=== PATIENT | male | born 1960 | race African-American/Black ===

== ENCOUNTER 2021-01-09 15:42 | Observation (INO) | payer MEDICARE, BC, SELFPAY ==
[2021-01-09] VITALS (29 sets, daily range): BP systolic 96–134; BP diastolic 68–91; PULSE 72–83; RESP 14–30; TEMP 36.6–37.4; O2SAT 94–100; BMI 19.8
--- NOTE | ~2021-01-09 | XR_ITS ---
XR chest 1V portable DATE: 01/09/2021 16:29 INDICATION: Cough. Lethargy, confusion, hypotension, bradycardia. TECHNIQUE: Portable upright AP chest on 03/09/2021 at 1631 hours COMPARISON: 05/02/2016 2 view chest FINDINGS: Normal heart size. No hilar or mediastinal enlargement. No pulmonary infiltrate or consolid ation, pleural effusion or pulmonary vascular congestion or pneumothorax. IMPRESSION: No active cardiopulmonary disease Reviewed, dictated and finalized at location B. TYPE FINISHER
--- NOTE | ~2021-01-09 | CT_ITS ---
EXAMINATION: CT brain wo con EXAM DATE: 01/09/2021 17:03 INDICATION: Altered level of consciousness, confusion and lethargy. Low blood pressure. Sinus issues. TECHNIQUE: Spiral CT of the head was performed without contrast. Axial, coronal and sagittal images were reviewed. The dose-length product (DLP) for this examination was 605.33 mGy-cm. The exposure w as tailored according to patient size, and iterative reconstruction (ASIR) was used as additional dos e reduction technique. Comparison is made to prior examination from 09/07/2018. FINDINGS: There is no acute intraparenchymal hemorrhage. No evidence of intraparenchymal brain mass lesion. No evidence of acute infarction. There is mild microangiopathy and atrophy. There is no mass effect or midline shift. The ventricles are normal in size. There are no extra-axial collections. There are no acute calvarial fractures. The orbits are unremarkable. Soft tissue is unremarkable. Mild right ethmoid mucoperiosteal thickening. No sinus air-fluid levels. Mastoid air cells are well a erated. IMPRESSION: 1. No acute intracranial findings. Reviewed, dictated and finalized at location A. ENTIALS SPECIALIST
--- NOTE | 2021-01-09 16:12 | ECG_ITS ---
Measurements Intervals [place] Rate: 71 P: 80 MD: 171 QRS: 65 QRSD: 69 T: 68 QT: 370 QTc: 403 Interpretive Statements SINUS RHYTHM BASELINE ARTIFACT- I, II, AVR, AVL, AVF NORMAL ECG Electronically Signed On 01-09-2021 19:48:06 [employer] by José Manuel Green D.O.
[2021-01-09 16:40] LABS: Basophils Percent Auto 0.2 % (0.2-1.2); Hematocrit 42.1 % (42.0-52.0); Hemoglobin 13.4 g/dL (14.0-18.0); Immature Granulocyte Absolute 0.02 K/mm3 (0.00-0.031); Immature Granulocyte Percent A 0.2 % (0-0.5); Lymphocytes Absolute Auto 0.52 K/mm3 (0.9-3.2); Lymphocytes Percent Auto 5.3 % (18.3-44.2); Mean Corpuscular HGB Conc 31.8 g/dl (32-36); Mean Corpuscular Hemoglobin 28.5 pg (26-34); Mean Corpuscular Volume 89.6 fl (80-100); Mean Platelet Volume 11.1 fl (7.4-10.4); Monocytes Absolute Auto 0.5 K/mm3 (0.1-0.6); Monocytes Percent Auto 5.5 % (2.6-8.5); Neutrophils Absolute Auto 8.8 K/mm3 (1.3-6.7); Neutrophils Percent Auto 88.8 % (45.5-73.1); Platelet Count Result 171 k/mm3 (150-375); White Blood Count 9.9 K/mm3 (4.5-10.0)
[2021-01-09 16:50] LABS: INR 0.9; Prothrombin Time 13.2 Seconds (11.1-14.7)
[2021-01-09 16:56] LABS: Alanine Aminotransferase 18 U/L (4-50); Albumin Level 4.1 g/dL (3.5-5.1); Alkaline Phosphatase 62 U/L (38-126); Anion Gap 6 mmol/L (8-16); Aspartate Amino Transferase 21 U/L (17-59); Bilirubin,Total 0.3 mg/dL (0.2-1.3); Blood Urea Nitrogen 20 mg/dL (9-20); Calcium 8.9 mg/dL (8.4-10.2); Carbon Dioxide 31 mmol/L (22-30); Chloride 107 mmol/L (98-107); Estimated CRCL calculation 43 ml/min; Estimated Glomerular Filt Rate > 60; Glucose 123 mg/dL (75-110); Potassium 4.4 mmol/L (3.4-5.0); Sodium 144 mmol/L (137-145)
[2021-01-09 17:08] LABS: NT Pro B Type Natriuretic Pept 89 PG/ML (5-100); Troponin I < 0.012 ng/mL (0.000-0.034)
[2021-01-09 17:58] LABS: Add Urine Microscopic? YES; Appearance Urine Clear (Clear); Bilirubin Urine Negative (Negative); Blood Urine Negative (Negative); Color Urine Yellow (Yellow); Glucose Urine UA Negative (Negative); Ketones Urine Trace mg/dL (Negative); Leukocyte Esterase Ur Negative LEU/UL (Negative); Mucus Urine Few /lpf; Nitrate Urine Negative (Negative); Protein Urine 2+ mg/dL (Negative); RBC Urine 0-2 /hpf (0-2); Urobilinogen Urine Negative mg/dL (<2.0); WBC Urine 0-3 /hpf
[2021-01-09 18:08] LABS: Specific Grav Ur 1.031 (1.001-1.035)
--- NOTE | 2021-01-09 19:03 | ED.AMS ---
HPI - Altered Mental Status General Chief Complaint: Altered Mental Status Stated Complaint: Vomiting, weakness Time Seen by Provider: 01/09/21 16:10 Source: family Mode of arrival: EMS Limitations: altered mental status History of Present Illness HPI narrative: 60-year-old with a history of dementia, hyperlipidemia, CAD s/p stents, hypertension was brought in from home with complaints of decreased alertness for last few days. Patient's reports that he is unable to ambulate , eat and defecating on himself for past 2 days. She states that she is a primary caregiver for her she is unable to manage return of symptoms. She also mentions that his blood pressure and heart rate have been dropping earlier this afternoon his heart rate was 40. She stated to call Dr. Batres who recommended to come to the ER. She also reports that he had 1 episode of emesis which was clear MD complaint: altered mental status Onset (ago): day(s) (2) Timing confirmed by: spouse Severity: severe Consistency of symptoms: getting Worse Related Data Home Medications Medication Instructions Recorded Confirmed aspirin 325 mg tablet 325 mg PO DAILY 10/30/20 10/30/20 Allergies Allergy/AdvReac Type Severity Reaction Status Date / Time No Known Allergies Allergy Verified 08/02/20 15:26 Review of Systems Review of Systems: ROS unobtainable: Yes unobtainable due to mental status PMFSH Past Medical History Medical History Altered consciousness Hypertensive crisis Incontinent of feces Recurrent episodes of unresponsiveness Screening for colon cancer Screening for prostate cancer Family History Family History Father Family history of diabetes mellitus in first degree relative Hypertension Mother Hypertension Social History Social History Smoking status: Never smoker Second hand tobacco smoke exposure: No Alcohol intake: current Exam Narrative: Exam Narrative: GENERAL: Well-appearing, well-nourished, and in no acute distress.non verbal HEAD: Normocephalic, atraumatic. EYES: PERRLA and EOMI. NECK: Supple. CHEST: Clear to auscultation. No respiratory distress. HEART: Regular rate and rhythm. No murmur heard. Normal peripheral pulses. ABDOMEN: Soft, nontender, nondistended, normal active bowel sounds. EXTREMITIES: Normal range of motion. No edema. SKIN: Warm, dry, no rash. NEURO: No focal deficits. Alert . Course Course Emergency Course: I had a lengthy discussion with his about his lab work, CT scan EKG findings at this time there is no obvious acute stroke or any electrolyte imbalance or sign of infection. Patient reports that she is getting exhausted taking care of him at home as his mental function has been slowly declining. She states that she has no help and for the past few days she is unable to sleep. She does not want him to be placed in a half-way because of the Covid as she cannot visit him. i did discuss with Dr. Batres informed him about his work up. Vital Signs Vital signs: Vital Signs Temperature 37.4 C 01/09/21 15:51 Pulse Rate 74 01/09/21 15:51 Respiratory Rate 20 01/09/21 15:51 Blood Pressure 96/77 L 01/09/21 15:51 Pulse Oximetry 98 01/09/21 15:51 Temperature 37.4 C 01/09/21 15:51 Pulse Rate 81 01/09/21 18:32 Respiratory Rate 20 01/09/21 18:32 Blood Pressure 127/81 01/09/21 18:32 Pulse Oximetry 100 01/09/21 18:00 MDM - Altered Mental Status Differential Diagnosis Differential diagnosis: Likely altered mental status, dementia and hyponatremia Lab Data Result diagrams: 01/09/21 16:35 01/09/21 16:35 Labs: Lab Results 01/09/21 01/09/21 01/09/21 Range/Units 16:35 16:35 16:35 WBC 9.9 (4.5-10.0) K/mm3 RBC 4.70 (4.6-6.20) M/mm3 Hgb 13.4 L (14.0-18.0) g/dL
[2021-01-10] VITALS (7 sets, daily range): BP systolic 118–136; BP diastolic 77–81; PULSE 65–83; RESP 18–20; TEMP 36.8–36.9; O2SAT 94–100
--- NOTE | 2021-01-10 01:25 | PM.IMHP ---
H&P: HPI History of Present Illness Date/Time: 01/10/21 01:25 Chief Complaint: Confusion Narrative: Christian Michaud is a 60 year old male who has a history of dementia and lives with his at home. The patient was brought in from home with complaints of decreased alertness for the last few days. According to his patient was not able to ambulate or eat. He was defecating on himself for the past 2 days. His is his primary caregiver and was able to manage the patient at this point. Was also mention at the patient's heart rate blood pressure been dropping this afternoon is heart rate was in the 40s. They called the primary care doctor who recommended that the patient be taken to the emergency room. The patient did have 1 episode of emesis and no blood was noted at that time. Blood pressure was 96/77 pulse ox was 90% pulse rate was 74 when he came in he was afebrile. Also the patient's stated she has not been getting any help and she has not been able to sleep for the past few nights. She does not want him in a fpc because of COVID she will be able to visit him. Dr. Batres was informed about the workup per the ED physician. No signs and symptoms Of any infection. Head CT was read as nothing acute. Chest x-ray showed nothing acute. When I went to assess the patient he was sitting on the side of bed trying to pick get out of bed. The patient ate all of his chips and is sandwich and drink all of his water. He had no difficulty swallowing and was answering yes and no to some of my questions. Patient is being admitted to observation on 01/10/2021 Review of Systems Review of Systems: All systems reviewed & are unremarkable except as noted in HPI and below Constitutional: Constitutional: Reports as per HPI and Reports no additional constitutional complaints Eyes: Eyes: Reports as per HPI and Reports no additional eye complaints ENT: Reports system reviewed and no additional complaints, except as documented and Reports Normal hearing present Cardiovascular: Cardiovascular: Reports no additional cardiovascular complaints Respiratory: Respiratory: Reports no additional respiratory complaints and Reports no additional respiratory complaints Gastrointestinal: Gastrointestinal: Reports as per HPI and Reports no additional gastrointestinal complaints Musculoskeletal: Musculoskeletal: Reports no additional musculoskeletal complaints Integumentary/Breasts: Skin/Breast: Reports system reviewed and no additional complaints, except as docu and Reports as per HPI Neurologic: Reports system reviewed and no additional complaints, except as documented, Reports as per HPI and Reports Normal hearing present Psychiatric: Psychiatric: Reports no additional psychiatric complaints and Reports as per HPI Endocrine: Endocrine: Reports no additional endocrine complaints Hematologic/Lymphatic: Hematologic/Lymphatic: Reports no additional hematologic/lymphatic complaints Allergic/Immunologic: Allergic/Immunologic: Reports no additional allergic/immunologic complaints [facility] Past Medical History Medical History (Updated 01/10/21 @ 01:41 by Sara Sung NP) Altered consciousness Dementia Hyperlipidemia Hypertension Hypertensive crisis Incontinent of feces Mixed hyperlipidemia Recurrent episodes of unresponsiveness Screening for colon cancer Screening for prostate cancer Surgical History Surgical History (Updated 01/10/21 @ 01:41 by Sara Sung NP) Surgical history unknown Family History Family History Father Family history of diabetes mellitus in first degree relative Hypertension Mother Hypertension Social History Social History (Updated 01/10/21 @ 01:43 by Sara Sung NP) Social History: Patient lives at home with his . The patient is disabled. The patient is listed as a full code. Smoking status: Never smoker Second hand tobacco
--- NOTE | 2021-01-10 05:32 | ADMGEN ---
This patient, Christian Michaud, was admitted to 3 Med Surg Room 324-01. Patient/family oriented to hospital policies and general routines including ID bracelet, bed and alarms, visiting hours, pain management, procedures, bathroom and other care routines, personal items, smoking policy, room service/diet, and visiting hours. Information on how to activate the Rapid Response Team has been discussed. Patient/Family are encouraged to report perceived risks to care and to ask questions if they do not understand what they are told or what they should do. Patient was admitted at 2030 from the ER showing signs of severe dementia. He answers yes and no questions and doesn't answer specific medical questions. His and ROGERS Gonzales was called at 2100 to discuss medications and history. She states that she is his only caregiver at home and that he has been challenging, occasionally having altercations with her, dislocating her shoulder on one occasion. He has attempted getting up w/o assistance and didn't accept redirection at that time though he has been redirectable most of the time, often pulling off telemetry leads. Janet said she had his medications at home and med rec was performed over the phone. 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 She said his dementia was caused by Alzheimer's though it has been rapidly progressing over 4 years. There are a few closed scratch foreman on his skin, though no observed open areas. His said he is incontinent of urine and stool and has been wearing disposable briefs. He has had two occasions of urinary incontinence here.
--- NOTE | 2021-01-10 14:27 | PM.IMPN ---
Progress Note: A&P Assessment and Plan (1) Dementia: Code(s): F03.90 - Unspecified dementia without behavioral disturbance Status: Chronic Assessment and Plan: Continue with aspirin, Aricept, Namenda, Seroquel, and aspirin. Will do PT and OT evaluation career guidance technician consultation. May also consider neurology consult. It sounds like the does not want the patient into a correction and just needs some help at home perhaps home health. 01/10/21 14:27 patient is a 60-year-old male with history of dementia who is unable to take care of himself and his is taking care of him who is his caregiver apparently patient symptoms were getting progressively worse he lost control of his bowel function needed more help than his can provide patient was brought to the emergency department for further evaluation unfortunately patient is not able to provide any detail review of symptoms or history he answered simply yes and no with few words, to further evaluate CT of the head did not show any acute injury, chest x-ray is essentially normal, currently patient is sitting in the chair states he ate his breakfast and has no complaint we have asked PT OT to evaluate the patient and further recommendation to follow. (2) Hypertension: Code(s): I10 - Essential (primary) hypertension Status: Chronic Assessment and Plan: Continue with metoprolol (3) Hyperlipidemia: Code(s): E78.5 - Hyperlipidemia, unspecified Status: Chronic Assessment and Plan: Continue with simvastatin Subjective Date/time seen: 01/10/21 14:27 patient is a 60-year-old male with history of dementia who is unable to take care of himself and his is taking care of him who is his caregiver apparently patient symptoms were getting progressively worse he lost control of his bowel function needed more help than his can provide patient was brought to the emergency department for further evaluation unfortunately patient is not able to provide any detail review of symptoms or history he answered simply yes and no with few words, to further evaluate CT of the head did not show any acute injury, chest x-ray is essentially normal, currently patient is sitting in the chair states he ate his breakfast and has no complaint we have asked PT OT to evaluate the patient and further recommendation to follow. Review of Systems Review of Systems: ROS unobtainable: Yes unobtainable due to medical condition Exam Narrative: Exam Narrative: Patient is comfortable, NAD HEENT: eyes are clear and none icteric LUNGS:CTA HEART: RR S1S2 ABD: BS+, Soft and nontender Lower extremities: no edema MS: Patient's right arm appears deformed SKIN: nonjaundiced Neuro: grossly intact. Objective Data Vital Signs Vital Signs: Vital Signs - 24 hr 01/09/21 15:51 01/09/21 16:05 01/09/21 16:06 Temperature 99.4 F Pulse Rate 74 80 77 Respiratory Rate 20 14 21 H Blood Pressure 96/77 L 110/77 Pulse Oximetry 98 98 01/09/21 16:15 01/09/21 16:17 01/09/21 16:30 Temperature Pulse Rate 78 76 75 Respiratory Rate 15 22 H 30 H Blood Pressure 113/73 Pulse Oximetry 100 100 01/09/21 16:45 01/09/21 17:01 01/09/21 17:02 Temperature Pulse Rate 76 Respiratory Rate 19 23 H 18 Blood Pressure 120/79 Pulse Oximetry 01/09/21 17:15 01/09/21 17:16 01/09/21 17:30 Temperature Pulse Rate 74 76 Respiratory Rate 21 H 20 14 Blood Pressure 128/78 Pulse Oximetry 01/09/21 17:45 01/09/21 17:47 01/09/21 18:00 Temperature Pulse Rate 76 74 77 Respiratory Rate 21 H 21 H 20 Blood Pressure 121/68 Pulse Oximetry 100 01/09/21 18:01 01/09/21 18:15 01/09/21 18:16 Temperature Pulse Rate 76 76 75 Respiratory Rate 23 H 19 22 H Blood Pressure 127/79 116/81 Pulse Oximetry 01/09/21 18:30 01/09/21 18:32 01/09/21 18:47 Temperature Pulse Rate 72 81 75 Respiratory Rat
--- NOTE | 2021-01-10 17:00 | PM.DS ---
DS: Admitting Diagnosis Admitting Diagnosis Admitting Diagnosis: Chief Complaint: Confusion DS: Discharge Diagnosis Discharge Diagnosis (1) Dementia: Code(s): F03.90 - Unspecified dementia without behavioral disturbance Status: Chronic Assessment and Plan: Continue with aspirin, Aricept, Namenda, Seroquel, and aspirin. Will do PT and OT evaluation ocular care technician consultation. May also consider neurology consult. It sounds like the does not want the patient into a longterm and just needs some help at home perhaps home health. 01/10/21 14:27 patient is a 60-year-old male with history of dementia who is unable to take care of himself and his is taking care of him who is his caregiver apparently patient symptoms were getting progressively worse he lost control of his bowel function needed more help than his can provide patient was brought to the emergency department for further evaluation unfortunately patient is not able to provide any detail review of symptoms or history he answered simply yes and no with few words, to further evaluate CT of the head did not show any acute injury, chest x-ray is essentially normal, currently patient is sitting in the chair states he ate his breakfast and has no complaint we have asked PT OT to evaluate the patient and further recommendation to follow. (2) Hypertension: Code(s): I10 - Essential (primary) hypertension Status: Chronic Assessment and Plan: Continue with metoprolol (3) Hyperlipidemia: Code(s): E78.5 - Hyperlipidemia, unspecified Status: Chronic Assessment and Plan: Continue with simvastatin DS: Summary Hospital Course Reason for hospitalization: Chief Complaint: Confusion Narrative: Christian Michaud is a 60 year old male who has a history of dementia and lives with his at home. The patient was brought in from home with complaints of decreased alertness for the last few days. According to his patient was not able to ambulate or eat. He was defecating on himself for the past 2 days. His is his primary caregiver and was able to manage the patient at this point. Was also mention at the patient's heart rate blood pressure been dropping this afternoon is heart rate was in the 40s. They called the primary care doctor who recommended that the patient be taken to the emergency room. The patient did have 1 episode of emesis and no blood was noted at that time. Blood pressure was 96/77 pulse ox was 90% pulse rate was 74 when he came in he was afebrile. Also the patient's stated she has not been getting any help and she has not been able to sleep for the past few nights. She does not want him in a longterm because of COVID she will be able to visit him. Dr. Batres was informed about the workup per the ED physician. No signs and symptoms Of any infection. Head CT was read as nothing acute. Chest x-ray showed nothing acute. When I went to assess the patient he was sitting on the side of bed trying to pick get out of bed. The patient ate all of his chips and is sandwich and drink all of his water. He had no difficulty swallowing and was answering yes and no to some of my questions. Patient is being admitted to observation on 01/10/2021 Hospital Course: 01/10/21 14:27 patient is a 60-year-old male with history of dementia who is unable to take care of himself and his is taking care of him who is his caregiver apparently patient symptoms were getting progressively worse he lost control of his bowel function needed more help than his can provide patient was brought to the emergency department for further evaluation unfortunately patient is not able to provide any detail review of symptoms or history he answered simply yes and no with few words, to further evaluate CT of the head did not show any acute injury, chest x-ray is essentially normal, currently patient is sitting i
== END 2021-01-10 18:40 | disposition home or self-care (01) ==
LOC: ANHED 19:10 → ANH3MEDSUR 01-10 17:00
PROVIDERS: Admitting Provider Internal Medicine; Emergency Provider Family Medicine; PCP Internal Medicine; Visit Provider Family Medicine
DX: F03.90 Unspecified dementia, unspecified severity, without behavioral disturbance, psychotic disturbance, mood disturbance, and anxiety (principal); R11.2 Nausea with vomiting, unspecified; R53.1 Weakness; R15.9 Full incontinence of feces; E78.5 Hyperlipidemia, unspecified; I25.10 Atherosclerotic heart disease of native coronary artery without angina pectoris; I10 Essential (primary) hypertension; Z95.5 Presence of coronary angioplasty implant and graft; Z79.82 Long term (current) use of aspirin
CPT/HCPCS: 36415; 51701; 70450; 71045; 80053; 81001; 83880; 84484; 85025; 85610; 93005; 97161; 97165; 99285; G0378

== ENCOUNTER 2021-01-31 16:30 | Outpatient (CLI) | payer MEDICARE, BC, SELFPAY | END 2021-01-31 16:31 | disposition home or self-care (01) | LOC: ANHCOVIDVC 16:30 | PROVIDERS: PCP Internal Medicine | DX: Z23 Encounter for immunization (principal) | CPT/HCPCS: 0001A; 91300 ==

== ENCOUNTER 2021-02-21 16:34 | Outpatient (CLI) | payer MEDICARE, BC, SELFPAY | END 2021-02-21 16:35 | disposition home or self-care (01) | LOC: ANHCOVIDVC 16:34 | PROVIDERS: PCP Internal Medicine | DX: Z23 Encounter for immunization (principal) | CPT/HCPCS: 0002A; 91300 ==

== ENCOUNTER 2021-07-30 17:04 | Emergency (ER) | payer MEDICARE, BC, SELFPAY ==
--- NOTE | ~2021-07-30 | CT_ITS ---
EXAMINATION: CT brain w con DATE: 07/30/2021 23:22 INDICATION: Abnormality seen on recent CT examination. TECHNIQUE: Computed tomography (CT) of the head was performed with 100 cc Omnipaque 350 intravenous c ontrast. The dose-length product was 605.33 mGy-cm. Automated exposure control and iterative reconstr uction technique were employed. COMPARISON: CT dated 07/30/2021 FINDINGS: The area of hyperdensity seen in the interhemispheric fissure conforms to a vascular struct ure. No extra-axial hemorrhage is identified. No ventriculomegaly or midline shift. No acute intracra nial infarction, mass or mass effect.mild mucosal thickening of the ethmoid air cells on the right. M astoids are pneumatized. No depressed skull fractures. There are scattered mild periventricular and s ubcortical white matter changes, most likely related to small vessel ischemic disease (microangiopath y). IMPRESSION: 1. No acute intracranial abnormality. Focal hyperdensity seen on prior noncontrast CT examination con forms to an intracranial vessel in the interhemispheric fissure. 2: Chronic age-related findings. 3: Mild sinus disease. Reviewed, dictated and finalized at location A. IMPRESSION: 1. No acute intracranial abnormality. Focal hyperdensity seen on prior noncontr ast CT examination conforms to an intracranial vessel in the interhemispheric f issure. 2: Chronic age-related findings. 3: Mild sinus disease.
--- NOTE | ~2021-07-30 | CT_ITS ---
EXAMINATION: CT cervical spine wo con DATE: 07/30/2021 18:49 INDICATION: Status post fall. Neck pain. TECHNIQUE: Computed tomography (CT) of the cervical spine was performed without intravenous contrast. The dose-length product was 189 mGy-cm. Automated exposure control and iterative reconstruction tech nique were employed. COMPARISON: None FINDINGS: There is degenerative disc disease at C2-3 through C5-6. There is multilevel uncinate hyper trophy. There is mild dextrocurvature of the cervical spine. Odontoid process within normal limits. T here is carotid atherosclerosis. Lung apices are unremarkable. No acute fracture or traumatic malalig nment. No evidence for perched facet. IMPRESSION: 1. No acute fracture. Reviewed, dictated and finalized at location A. IMPRESSION: 1. No acute fracture.
--- NOTE | ~2021-07-30 | XR_ITS ---
XR hip RT 2V w AP pelvis 07/30/2021 18:41 Indication: Right hip pain after fall Procedure: AP pelvis and 2 views right hip Comparison: No prior studies for comparison. Findings: Osteopenia. There is mild symmetric osteoarthritis of the hips. There is an osteochondroma originating from the right ilium laterally. No acute fracture or traumatic malalignment. Pelvic rings are intact. Impression: 1: No acute fracture. Reviewed, dictated and finalized at location A. Impression: 1: No acute fracture.
--- NOTE | ~2021-07-30 | XR_ITS ---
EXAMINATION: XR knee RT 2V DATE: 07/31/2021 00:19 INDICATION: Right knee pain. Fall. TECHNIQUE: 2 views of right knee were obtained. COMPARISON: Right knee radiographs 07/30/2021 FINDINGS: There is varus angulation at the knee. No fracture. There is severe osteoarthritis of media l compartment and mild osteoarthritis of lateral and patellofemoral compartments. There is a large kn ee joint effusion. IMPRESSION: 1. Severe right knee osteoarthritis. 2. Large right knee joint effusion. Reviewed, dictated and finalized at location A.
--- NOTE | ~2021-07-30 | CT_ITS ---
EXAMINATION: CT brain wo con DATE: 07/30/2021 18:49 INDICATION: Status post fall. TECHNIQUE: Computed tomography (CT) of the head was performed without intravenous contrast. The dose- length product was 605.33 mGy-cm. Automated exposure control and iterative reconstruction technique w ere employed. COMPARISON: CT dated 01/09/2021 FINDINGS: There is a focal hyperdensity along the interhemispheric fissure anteriorly, suspicious for small extra-axial hemorrhage. Generalized atrophy. No ventriculomegaly or midline shift. There are s cattered mild periventricular and subcortical white matter changes, most likely related to small vess el ischemic disease (microangiopathy). Mild mucosal thickening of the right ethmoid sinuses. Mastoids are pneumatized. No depressed skull fractures. IMPRESSION: 1. Focal hyperdensity anterior aspect of the interhemispheric fissure, suspicious for extra-axial hem orrhage, axial image 38 and sagittal image 36. No significant mass effect. Reviewed, dictated and finalized at location A. IMPRESSION: 1. Focal hyperdensity anterior aspect of the interhemispheric fissure, suspicio us for extra-axial hemorrhage, axial image 38 and sagittal image 36. No signifi cant mass effect.
--- NOTE | ~2021-07-30 | XR_ITS ---
XR knee RT 3V 07/30/2021 18:41 Indication: Right knee pain after fall Procedure: 3 views right knee Comparison: No prior studies for comparison. Findings: Moderate joint effusion. There is moderate polyarticular osteoarthritis of the right knee. No fracture or traumatic malalignment. No foreign bodies. Impression: 1: No acute fracture. 2: Moderate joint effusion. 3: Moderate polyarticular osteoarthritis. Reviewed, dictated and finalized at location A. Impression: 1: No acute fracture. 2: Moderate joint effusion. 3: Moderate polyarticular osteoarthritis.
[2021-07-30 17:09] VITALS: BP 140/90; PULSE 72; RESP 16; TEMP 37.3; O2SAT 100
--- NOTE | 2021-07-30 19:00 | PC.NURSE ---
assumed care of pt at this time. Report from Cat RN
--- NOTE | 2021-07-30 19:01 | ED.GENADULT ---
HPI - General Adult General Chief complaint: Fall Stated complaint: R HIP PAIN/AMS Time Seen by Provider: 07/30/21 17:11 Source: family History of Present Illness HPI narrative: Patient is a 60 y/o male brought in for possible right hip injury. states that patient has dementia and he is unable to provide history. Patient was staying with his parents over the weekend and brought back by yesterday. He reportedly had an unwitnessed fall 2 days ago while he was with his parents. He was found the on the ground with leg stuck between foot board and mattress. He is currently not able to stand or walk. suspects patient may have hip pain and injury. Related Data Home Medications Medication Instructions Recorded Confirmed aspirin 325 mg tablet 325 mg PO DAILY 10/30/20 03/19/21 Allergies Allergy/AdvReac Type Severity Reaction Status Date / Time No Known Allergies Allergy Verified 07/30/21 17:17 Review of Systems Review of Systems: ROS unobtainable: Yes unobtainable due to mental status [facility] Past Medical History Medical History (Updated 08/01/21 @ 00:00 by Eliza Baig) Altered consciousness Dementia Hyperlipidemia Hypertension Hypertensive crisis Incontinent of feces Mixed hyperlipidemia Recurrent episodes of unresponsiveness Screening for colon cancer Screening for prostate cancer Surgical History Surgical History Surgical history unknown Family History Family History Father Family history of diabetes mellitus in first degree relative Hypertension Mother Hypertension Social History Social History Social History: Patient lives at home with his . The patient is disabled. The patient is listed as a full code. Smoking status: Never smoker Second hand tobacco smoke exposure: No Alcohol intake: current Spiritual care concerns: No Exam Const: General: no acute distress and well developed Orientation/consciousness: confusion HENMT: Head: normocephalic Ears: external ears normal General nose exam: Normal external nose present Eyes: General: appearance normal, both eyes and all related structures Conjunctivae: conjunctivae normal Neck: Neck: normal visual inspection and full ROM Chest: Chest palpation & inspection: normal inspection of the chest and no tenderness Resp: Effort & Inspection: normal respiratory effort Auscultation: clear to auscultation bilaterally Cardio: Rate: regular rate Rhythm: regular rhythm GI: GI Palp: No abdominal tenderness and Yes Soft to palpation Skin: General skin exam: normal color and turgor normal Neuro: General: confusion and other (does not answer questions or follow commands, appears awake) Cognition (Neuro): abnormal cognition Extrem: General: normal to inspection, full ROM and no pedal edema Right lower extremity: hip/thigh Details: abnormal ROM Details: pain with passive ROM during Psych: Appearance: grossly normal Mental Status: mental status grossly normal Affect: normal affect Course Reevaluation(s) Reevaluation #1: Discussed with about test results. Offered possible admission for PT/OT evaluation and placement. does not wish to pursue admission or rehab at this time. She states that she will take him home and see what happens. Date: 07/31/21 Time: 01:20 Vital Signs Vital signs: Vital Signs Temperature 37.3 C 07/30/21 17:09 Pulse Rate 72 07/30/21 17:09 Respiratory Rate 16 07/30/21 17:09 Blood Pressure 140/90 07/30/21 17:09 Pulse Oximetry 100 07/30/21 17:09 Temperature 37.3 C 07/30/21 17:09 Pulse Rate 67 07/31/21 01:53 Respiratory Rate 18 07/31/21 01:53 Blood Pressure 130/70 07/31/21 01:53 Pulse Oximetry 100 07/31/21 01:53 Medical Decision Making Vital Signs Vital Signs: Vital Signs Temperatur
[2021-07-30 19:39] LABS: Basophils Percent Auto 0.2 % (0.2-1.2); Eosinophils Percent Auto 0.1 % (0-4.4); Hematocrit 43.7 % (42.0-52.0); Hemoglobin 13.7 g/dL (14.0-18.0); Immature Granulocyte Absolute 0.03 K/mm3 (0.00-0.031); Immature Granulocyte Percent A 0.3 % (0-0.5); Immature Platelet Fraction Pct 6.1 % (0.9-11.2); Lymphocytes Absolute Auto 1.33 K/mm3 (0.9-3.2); Lymphocytes Percent Auto 13.7 % (18.3-44.2); Mean Corpuscular HGB Conc 31.4 g/dl (32-36); Mean Corpuscular Hemoglobin 28.2 pg (26-34); Mean Corpuscular Volume 90.1 fl (80-100); Mean Platelet Volume 10.4 fl (7.4-10.4); Monocytes Absolute Auto 0.9 K/mm3 (0.1-0.6); Monocytes Percent Auto 8.7 % (2.6-8.5); Neutrophils Absolute Auto 7.5 K/mm3 (1.3-6.7); Platelet Count Result 173 k/mm3 (150-375); Red Blood Count 4.85 M/mm3 (4.6-6.20); Red Cell Distribution Width 15.9 % (11.5-14.5); White Blood Count 9.7 K/mm3 (4.5-10.0)
[2021-07-30 19:45] VITALS: BP 144/74; PULSE 77; RESP 18; O2SAT 97
[2021-07-30 19:47] LABS: Alanine Aminotransferase 15 U/L (4-50); Albumin Level 4.1 g/dL (3.5-5.1); Alkaline Phosphatase 76 U/L (38-126); Anion Gap 7 mmol/L (8-16); Aspartate Amino Transferase 22 U/L (17-59); Bilirubin,Total 0.3 mg/dL (0.2-1.3); Blood Urea Nitrogen 18 mg/dL (9-20); Calcium 9.2 mg/dL (8.4-10.2); Carbon Dioxide 27 mmol/L (22-30); Chloride 105 mmol/L (98-107); Estimated CRCL calculation 66 ml/min; Estimated Glomerular Filt Rate > 60; Glucose 106 mg/dL (65-110); Potassium 4.8 mmol/L (3.4-5.0); Sodium 139 mmol/L (137-145)
[2021-07-30 20:25] LABS: Platelet Estimate Adequate (Adequate)
[2021-07-30 22:40] VITALS: BP 142/72; PULSE 78; RESP 18; O2SAT 96
[2021-07-31] MEDS: ACETAMINOPHEN 325 MG TABLET 650 MG PO (00:20)
[2021-07-31 01:53] VITALS: BP 130/70; PULSE 67; RESP 18; O2SAT 100
== END 2021-07-31 02:00 | disposition home or self-care (01) ==
PROVIDERS: Emergency Provider Emergency Medicine; PCP Internal Medicine
DX: S79.911A Unspecified injury of right hip, initial encounter (principal); M25.461 Effusion, right knee; F03.90 Unspecified dementia, unspecified severity, without behavioral disturbance, psychotic disturbance, mood disturbance, and anxiety; E78.5 Hyperlipidemia, unspecified; I10 Essential (primary) hypertension; E78.2 Mixed hyperlipidemia; W19.XXXA Unspecified fall, initial encounter
CPT/HCPCS: 36415; 70450; 70460; 70470; 72125; 73502; 73560; 73562; 80053; 85025; 85055; 99284; A9270; Q9967

== ENCOUNTER 2021-09-15 17:26 | Inpatient (IN) | payer MEDICARE, BC, SELFPAY ==
--- NOTE | ~2021-09-15 | CT_ITS ---
EXAMINATION: CT cervical spine wo con DATE: 09/15/2021 19:37 INDICATION: Fall. TECHNIQUE: Computed tomography (CT) of the cervical spine was performed without intravenous contrast. Automated exposure control and iterative reconstruction technique were employed. Exam dose: 88.16 m Gy-cm total exam DLP. COMPARISON: None FINDINGS: C1 and C2 are normally aligned and the odontoid process is intact. There is moderately severe degenerative disc disease and mild retrolisthesis at C2-3, C3-4, C4-5. The re is moderately severe degenerative disc disease at C5-6. No fracture or dislocation or locked facet or prevertebral soft tissue swelling. IMPRESSION: Multilevel degenerative disc disease; no fracture or dislocation Reviewed, dictated and finalized at Location A. Reviewed, dictated and finalized at location A.
--- NOTE | ~2021-09-15 | CT_ITS ---
EXAMINATION: CT chest abdomen pelvis wo con DATE: 09/15/2021 19:38 INDICATION: Fall. Left hip pain. Aspiration. TECHNIQUE: Computed tomography (CT) of the chest, abdomen, and pelvis was performed without intraveno us contrast. Automated exposure control and iterative reconstruction technique were employed. Exam do se: 264.22 mGy-cm total exam DLP. COMPARISON: None FINDINGS: CHEST CT: Normal heart size. Coronary artery calcification. No pericardial effusion. No thoracic aortic aneurys m or dissection. No hilar or mediastinal enlargement is detected. The right lung is clear. There is minimal infiltrate in the posterior segment and lingula of the left upper lobe and extensive patchy consolidation of the left lower lobe, most prominent dependently. ABDOMEN/PELVIS CT: The liver, spleen, pancreas, and adrenal glands and kidneys are unremarkable. Normal caliber of the abdominal aorta. No intraperitoneal or retroperitoneal or pelvic mass lesion or adenopathy or ascites. No bowel obstruction or intraperitoneal free air. No suspicious osteolytic or osteoblastic lesions IMPRESSION: Extensive patchy consolidation of the left lower lobe and to a lesser extent the depende nt left upper lobe. Consider aspiration pneumonitis and pneumonia Reviewed, dictated and finalized at Location A. Reviewed, dictated and finalized at location A. IMPRESSION: Extensive patchy consolidation of the left lower lobe and to a les ser extent the dependent left upper lobe. Consider aspiration pneumonitis and p neumonia
--- NOTE | ~2021-09-15 | CT_ITS ---
EXAMINATION: CT brain wo con DATE: 09/15/2021 19:37 INDICATION: Speech changes TECHNIQUE: Computed tomography (CT) of the head was performed without intravenous contrast. The mA wa s adjusted according to patient size. Iterative reconstruction technique was employed. Exam dose: 60 5.33 mGy-cm total exam DLP. COMPARISON: 07/30/2021 CT brain without and with IV contrast material 01/09/2021 CT brain FINDINGS: There is chronic greater than expected central and cortical cerebral volume loss. There is nonspecific diminished attenuation of the cerebral white matter, likely due to chronic small vessel ischemic changes. No intracranial mass lesion or hemorrhage or cerebrovascular accident. No subdural or epidural hemato ma. No fracture or bone destruction of the cranial vault. There is opacification of right ethmoid air cells. The included paranasal sinuses and the mastoid air cells are otherwise unremarkable. IMPRESSION: Greater than expected central and cortical cerebral volume loss for age No acute intracranial finding Reviewed, dictated and finalized at Location A. Reviewed, dictated and finalized at location A. IMPRESSION: Greater than expected central and cortical cerebral volume loss fo r age No acute intracranial finding
[2021-09-15 17:23] VITALS: BP 139/100; PULSE 109; RESP 19; O2SAT 93
[2021-09-15 20:27] LABS: Basophils Percent Auto 0.3 % (0.2-1.2); Eosinophils Percent Auto 0.1 % (0-4.4); Hematocrit 37.9 % (42.0-52.0); Hemoglobin 11.8 g/dL (14.0-18.0); Immature Granulocyte Absolute 0.02 K/mm3 (0.00-0.031); Immature Granulocyte Percent A 0.2 % (0-0.5); Lymphocytes Absolute Auto 0.82 K/mm3 (0.9-3.2); Lymphocytes Percent Auto 8.9 % (18.3-44.2); Mean Corpuscular HGB Conc 31.1 g/dl (32-36); Mean Corpuscular Hemoglobin 27.6 pg (26-34); Mean Corpuscular Volume 88.6 fl (80-100); Mean Platelet Volume 9.6 fl (7.4-10.4); Monocytes Absolute Auto 0.4 K/mm3 (0.1-0.6); Monocytes Percent Auto 4.3 % (2.6-8.5); Neutrophils Absolute Auto 7.9 K/mm3 (1.3-6.7); Neutrophils Percent Auto 86.2 % (45.5-73.1); Platelet Count Result 436 k/mm3 (150-375); Red Blood Count 4.28 M/mm3 (4.6-6.20); Red Cell Distribution Width 14.4 % (11.5-14.5); White Blood Count 9.2 K/mm3 (4.5-10.0)
[2021-09-15 20:40] LABS: Alanine Aminotransferase 112 U/L (4-50); Albumin Level 3.8 g/dL (3.5-5.1); Alkaline Phosphatase 118 U/L (38-126); Anion Gap 11 mmol/L (8-16); Aspartate Amino Transferase 49 U/L (17-59); Bilirubin,Total 0.3 mg/dL (0.2-1.3); Blood Urea Nitrogen 26 mg/dL (9-20); Calcium 9.8 mg/dL (8.4-10.2); Carbon Dioxide 33 mmol/L (22-30); Chloride 106 mmol/L (98-107); Estimated CRCL calculation 56 ml/min; Estimated Glomerular Filt Rate > 60; Glucose 119 mg/dL (65-110); Potassium 4.7 mmol/L (3.4-5.0); Sodium 150 mmol/L (137-145)
--- NOTE | 2021-09-15 20:48 | ED.GENADULT ---
HPI - General Adult General Chief complaint: Unspecified Stated complaint: ?asp pneumonia Time Seen by Provider: 09/15/21 18:13 Source: patient Mode of arrival: EMS Limitations: physical limitation and dementia History of Present Illness HPI narrative: Patient is a 60-year-old with advanced dementia presenting with chief complaint of possible aspiration, decreased ability to ambulate, decreased speech, and pressure sores. Patient is reports that the patient has had a major decline since going to stay with family for 1 week given 1 month ago. She reports that the patient was able to ambulate prior to that visit but fell and since has not been speaking or ambulating. She reports that she had the patient brought to this facility and examined after the fall. She reports the patient grimaces in pain anytime the right leg is moved. She reports that physical therapy has been coming to the house but they have not noticed any improvement. Patient states that he has a nurse that comes to the house once a week to evaluate the patient and she was concerned with his cough that he may have aspirated. She reports that the patient had a fever of 103 ?F last night. She reports the patient coughs and it sounds deep and productive although he is not able to cough up phlegm. She also reports that the patient has wounds to his buttock as well as to his left ear and his feet. She reports she attempts to rotate the patient and he has a air mattress on his hospital bed at home but it has not seemed to keep these areas from starting. She denies vomiting or diarrhea. She reports the patient has had 2 stents. Related Data Home Medications Medication Instructions Recorded Confirmed aspirin 325 mg tablet 325 mg PO DAILY 10/30/20 09/15/21 cetirizine 10 mg PO ONCE 09/15/21 09/15/21 cholecalciferol (vitamin D3) 1,250 mcg PO WEEKLY 09/15/21 09/15/21 ciprofloxacin HCl 1 - 2 drp EACH EYE Q4HWA 09/15/21 09/15/21 divalproex 250 mg PO BID 09/15/21 09/15/21 ferrous sulfate [FeroSul] 325 mg PO BID 09/15/21 09/15/21 memantine 10 mg PO BID 09/15/21 09/15/21 silver sulfadiazine [SSD] 1 applic TOPICAL BID 09/15/21 09/15/21 simvastatin 40 mg PO ONCE 09/15/21 09/15/21 Allergies Allergy/AdvReac Type Severity Reaction Status Date / Time No Known Allergies Allergy Verified 07/30/21 17:17 Review of Systems Review of Systems: CONSTITUTIONAL: Denies fever, chills, or sweats. EYES: Denies visual changes, redness, or discharge. ENT: Denies rhinorrhea, congestion, sore throat, or otalgia. CARDIOVASCULAR: Denies chest pain, palpitations, or edema. RESPIRATORY: Reports cough denies dyspnea. GASTROINTESTINAL: Denies abdominal pain, nausea, vomiting, or diarrhea. GENITOURINARY: Denies dysuria or hematuria. SKIN: Reports sores denies rash or itching. MUSCULOSKELETAL: Reports right leg pain denies back pain, joint pain, or myalgia. NEUROLOGIC: Denies headache, numbness, dizziness, or weakness. PSYCHIATRIC: Denies anxiety or depression. REPLACED BY [facility] Past Medical History Medical History (Updated 09/16/21 @ 08:15 by Radhika De La Cruz DO) Coronary artery disease Dementia Onset at age 55 Hyperlipidemia Hypertension Mixed hyperlipidemia Recurrent episodes of unresponsiveness Surgical History Surgical History (Updated 09/16/21 @ 08:10 by Radhika De La Cruz DO) History of arthroscopy of left knee History of heart artery stent At age 47 he had 2 LAD stents Family History Family History Father Hypertension Diabetes mellitus Mother Hypertension Social History Social History (Updated 09/16/21 @ 08:12 by Radhika De La Cruz DO) Social History: Patient lives at home with his of 21 years. He has 2 step children and 5 grandchildren. He has a hospital bed at home. He is a lifelong nonsmoker and only drank alcohol on occasion in moderation has not drank alcohol in many years. Does not have a history of illici
[2021-09-15] MEDS: SODIUM CHLORIDE 0.9% IV 1,000 ML 999 ML IV CONT (21:22)
--- NOTE | 2021-09-15 21:34 | PC.NURSE ---
wounds left outer ear some open areas and some black areas, 7cm x 7cm open wound buttock states being managed by , [facility] 3cm round wounds black not open
[2021-09-15 21:37] VITALS: BP 104/89; PULSE 120; RESP 20; TEMP 38.6
--- NOTE | 2021-09-15 21:52 | PM.IMHP ---
H&P: HPI History of Present Illness Date/Time: 09/15/21 21:52 Chief Complaint: Home health nurse referral Narrative: Unfortunate 60-year-old male with history of early-onset dementia, hypertension, hyperlipidemia, coronary artery disease who presented to the ER from via EMS home due to home health nurse referral for evaluation. Home health nurse was concerned the patient may have aspiration pneumonia or infected bedsores. The patient lives at home with his who provides all of his cares. He has a hospital bed with an air relieving mattress at home. Evidently last month the patient had stayed with other family members for the weekend in the patient tripped and fell. Prior to that fall the patient was able to ambulate around and would intermittently talk to family. After he fell the patient's functional status got acutely worse. Since that time the patient has been essentially bedbound and is no longer communicating with family members. The patient used to weigh around 180 lb. Over the years of his dementia he has progressively lost weight but over the last month no thinks that he has significantly dropped in weight. He is now down to 105 lb. The patient's reports that the patient frequently will cough after he takes bites of food. Over recent weeks she has transition him to soft foods. She is providing him with protein drinks and supplements. She tries to give him frequent sips in drinks of liquids. She reports that he has developed bedsores over his buttocks over the last couple of months. The sores are increasing in size. She is managing to keep the sores clean and has not noticed any significant drainage. She also noticed developing wounds to bilateral heels with the wound on left heel being much larger. He has also developed a bedsore to his left ear. She has been applying Silvadene and protective dressings. The wounds on the heels are deep tissue wounds in are not open. She had not noticed the patient having any fevers at home but he was febrile on arrival to the ER with a temperature of 101.5?. She had noticed that he had been shivering more than usual. Home health nurse became concerned the patient may have aspiration pneumonia the patient had developed a cough. The was concerned that the patient may be having some hip pain. But he has had outpatient hip x-ray that was negative. He had a CT of the abdomen pelvis in the ER that was negative for fracture but demonstrated the aspiration pneumonia of the left lung. The patient did not have any documented hypoxia in the ER but arrived to the floor on 2 L nasal cannula. The patient's reported that his depends was wet this morning. He had no urine output for the rest of the day. In the ER patient did not produce enough urine for a UA until after he received 2 L in bolus. The patient's reports that the patient has been incontinent of urine since his diagnosis with dementia at 55 years old. She reports that the patient will bite if she tries to brush his teeth and subsequently he has developed some dental caries. She reports that he used to be quite combative. Over the last couple of weeks he will still reach for things and try to stop her from providing cares if the cares are painful but he is much less interactive. He was recently put on eyedrops for possible eye infection. He has not had any current drainage from his eyes. She reports he was recently placed on iron supplements by his primary care physician. She is very concerned because he has not had any of his home medications since the as he will not take them. She is concerned about his quality of life and declining condition. She is having significant difficulty caring for him and after some discussion she is considering the idea of hospice. Evidently her primary care physician had given her a card for her to contact [facility]. She had not done so because he thought that hospice and that that was only in the time
[2021-09-15 22:13] LABS: Add Urine Microscopic? YES; Appearance Urine Cloudy (Clear); Bacteria Urine Trace /hpf; Bilirubin Urine Negative (Negative); Blood Urine Negative (Negative); Color Urine Yellow (Yellow); Glucose Urine UA Negative (Negative); Ketones Urine 1+ mg/dL (Negative); Leukocyte Esterase Ur Negative LEU/UL (Negative); Mucus Urine Moderate /lpf; Nitrate Urine Negative (Negative); Protein Urine 1+ mg/dL (Negative); RBC Urine 0-2 /hpf (0-2); Squamous Epithelial Cell Urine Rare /hpf (Few); WBC Urine 0-3 /hpf
[2021-09-15 22:20] LABS: Specific Grav Ur 1.031 (1.001-1.035)
[2021-09-15 23:59] VITALS: BP 132/88; PULSE 113; RESP 20; TEMP 37.5; O2SAT 99; BMI 15.6
[2021-09-16] VITALS (7 sets, daily range): BP systolic 133–147; BP diastolic 74–88; PULSE 94–98; RESP 12–20; TEMP 36.8–37.1; O2SAT 92–100
--- NOTE | 2021-09-16 00:01 | ADMGEN ---
This patient, Christian Michaud, was admitted to 3 [facility] Surg Room 313-01. Patient/family oriented to hospital policies and general routines including ID bracelet, bed and alarms, visiting hours, pain management, procedures, bathroom and other care routines, personal items, smoking policy, room service/diet, and visiting hours. Information on how to activate the Rapid Response Team has been discussed. Patient/Family are encouraged to report perceived risks to care and to ask questions if they do not understand what they are told or what they should do.
[2021-09-16] MEDS: SODIUM CHLORIDE 0.9% IV 1,000 ML 999 ML IV CONT ×2 (01:04→05:46)
[2021-09-16 01:11] LABS: Lactic Acid Reflex 1.4 mmol/L (0.7-2.1)
[2021-09-16] MEDS: AMPICILLIN SULB 3 GM/NS 100 ML 3 GM/100 ML VIAL IVPB ×4 (01:25→21:15)
--- NOTE | 2021-09-16 03:09 | PC.NURSE ---
DR De La Cruz states to watch Urine output and if not voiding to place patterson
[2021-09-16 06:49] LABS: Hemoglobin 10.7 g/dL (14.0-18.0); Mean Corpuscular HGB Conc 31.5 g/dl (32-36); Mean Corpuscular Hemoglobin 27.4 pg (26-34); Mean Corpuscular Volume 87.2 fl (80-100); Mean Platelet Volume 10.6 fl (7.4-10.4); Platelet Count Result 427 k/mm3 (150-375); Red Cell Distribution Width 14.3 % (11.5-14.5); White Blood Count 11.8 K/mm3 (4.5-10.0)
[2021-09-16 06:58] LABS: Anion Gap 11 mmol/L (8-16); Blood Urea Nitrogen 19 mg/dL (9-20); Calcium 9.1 mg/dL (8.4-10.2); Carbon Dioxide 28 mmol/L (22-30); Chloride 110 mmol/L (98-107); Estimated CRCL calculation 67 ml/min; Estimated Glomerular Filt Rate > 60; Glucose 115 mg/dL (65-110); Potassium 4.1 mmol/L (3.4-5.0); Sodium 149 mmol/L (137-145)
[2021-09-16 07:52] LABS: Band Neutrophils Percent 7 % (0-6); Lymphocytes Absolute Manual 1.88 K/mm3 (1.1-4.5); Monocytes Absolute Manual 0.47 K/mm3 (0.1-0.90); Monocytes Percent Manual 4 % (3-9); Neutrophils Absolute Manual 9.44 K/mm3 (1.3-6.7); Neutrophils Percent Manual 73 % (46-73); Platelet Estimate Increased (Adequate); Total Cells Counted 100
[2021-09-16] MEDS: CIPROFLOXACIN HCL 0.3% OP SOLN 2.5 ML BTL 2 DROP EACH EYE ×2 (09:56→21:16)
[2021-09-16] MEDS: DEXTROSE 5%/0.45% SOD CHL 1,000 ML 150 ML IV CONT (09:56)
[2021-09-16] MEDS: ENOXAPARIN 40 MG/0.4 ML SYRINGE SUB-Q (09:56)
--- NOTE | 2021-09-16 10:29 | PCSTNOTE ---
Communication Evaluation attempted and completed with extremely limited skills observed. No further ST recommended. A Modified Barium Swallow study is not indicated at this time due to severity of deficits however may be attempted prior to discharge if physician feels it is warranted.
[2021-09-16] MEDS: SILVER SULFADIAZINE 1% CR 50 GM JAR (*BKC) 1 APPLIC TOPICAL ×2 (12:55→21:16)
--- NOTE | 2021-09-16 17:12 | PM.IMPN ---
Progress Note: A&P Assessment and Plan (1) Aspiration pneumonia: Qualifiers: Aspiration pneumonia type: unspecified Laterality: left Lung location: unspecified part of lung Qualified Code(s): J69.0 - Pneumonitis due to inhalation of food and vomit Code(s): J69.0 - Pneumonitis due to inhalation of food and vomit Status: Acute Assessment and Plan: Patient has aspiration pneumonia resulting in sepsis. He met sepsis criteria on presentation with fever, tachycardia, leukocytosis with bandemia. Patient is started on antibiotic therapy with Unasyn. Blood cultures pending. (2) Sepsis: Qualifiers: Sepsis acute organ dysfunction status: without acute organ dysfunction Sepsis type: sepsis due to unspecified organism Qualified Code(s): A41.9 - Sepsis, unspecified organism Code(s): A41.9 - Sepsis, unspecified organism Status: Acute Assessment and Plan: See above (3) Hypernatremia: Code(s): E87.0 - Hyperosmolality and hypernatremia Status: Acute Assessment and Plan: hypernatremia not improved, switched IV fluids to D5 .45% NS at 75 mL an hour (4) Decubitus ulcers: Qualifiers: Pressure injury location: unspecified location Pressure injury stage: unspecified pressure injury stage Qualified Code(s): L89.90 - Pressure ulcer of unspecified site, unspecified stage Code(s): L89.90 - Pressure ulcer of unspecified site, unspecified stage Status: Acute Assessment and Plan: Wound care consult placed (5) Protein calorie malnutrition: Qualifiers: Protein-calorie malnutrition severity: severe Qualified Code(s): E43 - Unspecified severe protein-calorie malnutrition Code(s): E46 - Unspecified protein-calorie malnutrition Status: Acute Assessment and Plan: Patient's home medications are currently on hold. Patient's was providing nutritional supplements but the patient has had progressive decline in appetite and intake. He has had decline in functional status and quality of life. See below for ST eval. (6) Dementia: Qualifiers: Alzheimer's disease onset: early-onset Dementia behavioral disturbance: with behavioral disturbance Dementia type: Alzheimer's Qualified Code(s): G30.0 - Alzheimer's disease with early onset; F02.81 - Dementia in other diseases classified elsewhere with behavioral disturbance Code(s): F03.90 - Unspecified dementia without behavioral disturbance Status: Chronic Assessment and Plan: Per speech therapy: Communication Evaluation attempted and completed with extremely limited skills observed. No further ST recommended. A Modified Barium Swallow study is not indicated at this time due to severity of deficits however may be attempted prior to discharge if physician feels it is warranted. Will continue NPO as he is at risk for aspiration. I discussed hospice with the patient's and she was meeting with Carlos immediately after my evaluation of the patient. (7) Dehydration: Code(s): E86.0 - Dehydration Status: Acute Assessment and Plan: Likely due to progressive dementia and decreased PO intake. Being tx w/ IVF. Subjective Date/time seen: 09/16/21 17:12 Unfortunate 60-year-old male with history of early-onset dementia, hypertension, hyperlipidemia, coronary artery disease who presented to the ER from via EMS home due to home health nurse referral for evaluation. Home health nurse was concerned the patient may have aspiration pneumonia or infected bedsores. Workup in ED confirms aspiration pneumonia L lung and decubitous ulcers w/ sepsis. Pt A/Ox0. Further hx limited secondary to clinical condition. Review of Systems Review of Systems: ROS unobtainable: Yes unobtainable due to medical condition Exam Narrative: General: Chronically debilitated, thin body habitus HEENT: Mucous membra
[2021-09-16] MEDS: DEXTROSE 5%/0.45% SOD CHL 1,000 ML 75 ML IV CONT (17:52)
[2021-09-17] MEDS: AMPICILLIN SULB 3 GM/NS 100 ML 3 GM/100 ML VIAL IVPB ×3 (02:14→13:38)
[2021-09-17 05:34] VITALS: BP 134/89; PULSE 89; RESP 18; TEMP 37.2; O2SAT 100
[2021-09-17] MEDS: CIPROFLOXACIN HCL 0.3% OP SOLN 2.5 ML BTL 2 DROP EACH EYE ×2 (05:55→08:36)
[2021-09-17 06:10] LABS: Basophils Percent Auto 0.2 % (0.2-1.2); Eosinophils Percent Auto 0.3 % (0-4.4); Hemoglobin 9.6 g/dL (14.0-18.0); Immature Granulocyte Absolute 0.05 K/mm3 (0.00-0.031); Immature Granulocyte Percent A 0.4 % (0-0.5); Lymphocytes Absolute Auto 1.37 K/mm3 (0.9-3.2); Lymphocytes Percent Auto 12.2 % (18.3-44.2); Mean Corpuscular Hemoglobin 27.4 pg (26-34); Mean Corpuscular Volume 85.7 fl (80-100); Mean Platelet Volume 9.9 fl (7.4-10.4); Monocytes Absolute Auto 0.7 K/mm3 (0.1-0.6); Monocytes Percent Auto 5.8 % (2.6-8.5); Neutrophils Absolute Auto 9.2 K/mm3 (1.3-6.7); Neutrophils Percent Auto 81.1 % (45.5-73.1); Platelet Count Result 402 k/mm3 (150-375); White Blood Count 11.3 K/mm3 (4.5-10.0)
[2021-09-17 06:38] LABS: Valproic Acid < 10.0 ug/mL (50-120)
[2021-09-17 07:05] LABS: Anion Gap 9 mmol/L (8-16); Blood Urea Nitrogen 8 mg/dL (9-20); Calcium 8.8 mg/dL (8.4-10.2); Carbon Dioxide 30 mmol/L (22-30); Chloride 104 mmol/L (98-107); Estimated CRCL calculation 78 ml/min; Estimated Glomerular Filt Rate > 60; Glucose 122 mg/dL (65-110); Potassium 3.5 mmol/L (3.4-5.0); Sodium 143 mmol/L (137-145)
[2021-09-17] MEDS: DEXTROSE 5%/0.45% SOD CHL 1,000 ML 75 ML IV CONT (08:36)
[2021-09-17] MEDS: ENOXAPARIN 40 MG/0.4 ML SYRINGE SUB-Q (08:36)
[2021-09-17] MEDS: SILVER SULFADIAZINE 1% CR 50 GM JAR (*BKC) 1 APPLIC TOPICAL (08:36)
--- NOTE | 2021-09-17 10:24 | PCSTNOTE ---
Please refer to the Bedside Swallow Evaluation in the EMR. Please note, silent aspiration cannot be ruled out at bedside.
--- NOTE | 2021-09-17 11:12 | PM.DS ---
DS: Admitting Diagnosis Discharge Date 09/17/21 Admitting Diagnosis Aspiration pneumonia DS: Discharge Diagnosis Discharge Diagnosis (1) Aspiration pneumonia: Qualifiers: Aspiration pneumonia type: unspecified Laterality: left Lung location: unspecified part of lung Qualified Code(s): J69.0 - Pneumonitis due to inhalation of food and vomit Code(s): J69.0 - Pneumonitis due to inhalation of food and vomit Status: Acute (2) Sepsis: Qualifiers: Sepsis type: sepsis due to unspecified organism Sepsis acute organ dysfunction status: without acute organ dysfunction Qualified Code(s): A41.9 - Sepsis, unspecified organism Code(s): A41.9 - Sepsis, unspecified organism Status: Acute (3) Hypernatremia: Code(s): E87.0 - Hyperosmolality and hypernatremia Status: Acute (4) Decubitus ulcers: Qualifiers: Pressure injury location: unspecified location Pressure injury stage: unspecified pressure injury stage Qualified Code(s): L89.90 - Pressure ulcer of unspecified site, unspecified stage Code(s): L89.90 - Pressure ulcer of unspecified site, unspecified stage Status: Acute (5) Protein calorie malnutrition: Qualifiers: Protein-calorie malnutrition severity: severe Qualified Code(s): E43 - Unspecified severe protein-calorie malnutrition Code(s): E46 - Unspecified protein-calorie malnutrition Status: Acute (6) Dementia: Qualifiers: Dementia type: Alzheimer's Alzheimer's disease onset: early-onset Dementia behavioral disturbance: with behavioral disturbance Qualified Code(s): G30.0 - Alzheimer's disease with early onset; F02.81 - Dementia in other diseases classified elsewhere with behavioral disturbance Code(s): F03.90 - Unspecified dementia without behavioral disturbance Status: Chronic (7) Dehydration: Code(s): E86.0 - Dehydration Status: Acute DS: Summary Hospital Course Reason for hospitalization: 60yo male with advance, early-onset dementia that has been progressively worsening here for possible aspiration PNA. Please see H&P for details Hospital Course: Patient felt to have aspiration pneumonia resulting in sepsis. He met sepsis criteria on presentation with fever, tachycardia, leukocytosis with bandemia. Patient was started on Unasyn. Blood cultures NGTD. He did have hypernatremia related to dehydratin but improved with IV fluids. He has chronic wounds present on admission; we had wound care consulted. Patient was non-communicative and also not able to follow commands and thus no MBS performed. Options discussed and states patient has told her in the past that he would not want to continue like this. We discussed hospice and she felt this was the right decision. Care Coordination was informed and Hospice was arranged for home. Kailee was able to be discharged home on hospice on 09/17/21 Status at Discharge Cognitive/behavioral status at discharge: Stable Time Spent with Patient Time attestation: Total time spent providing and/or coordinating discharge services:32 minutes Time spent: Greater than 30 minutes Exam Narrative: AF 98.9 134/89 89 18 100% ra Gen - NARD Chest - clear anteriorly to quiet respirations, nml RR CV - RRR S1/S2 Abd - Soft, scaphoid Ext - trace right gerald-ankle edme Neuro - Alert, nonverbal Skin - bilateral heel ecchymosis but skin intact DS: Data Data Completed and Pending Labs on day of discharge: Labs from last 24 hours 09/17/21 09/17/21 09/17/21 06:39 05:26 05:26 WBC 11.3 H RBC 3.50 L Hgb 9.6 L Hct 30.0 L MCV 85.7 MCH 27.4 MCHC 32.0 RDW 14.0 Plt Count 402 H MPV 9.9 Immature Gran % (Auto) 0.4 Neut % (Auto) 81.1 H Lymph % (Auto) 12.2 L Dickenson % (Auto) 5.8 Eos % (Auto) 0.3 Baso % (Auto) 0.2 Lymph # (Auto) 1.37 Dickenson # (Auto) 0.7 H Eos # (Auto) 0.0 Baso #
[2021-09-17 15:43] VITALS: BP 148/76; PULSE 93; RESP 18; TEMP 37.3; O2SAT 96
--- NOTE | 2021-09-17 16:15 | PC.NURSE ---
On 09/17/21, the student, [ Juice Bautista], provided care and completed [facility] documentation on this patient. I have reviewed the student's documentation and agree with the findings.
== END 2021-09-17 17:10 | disposition hospice, home (50) | DRG 871 ==
LOC: ANHED 21:57 → ANH3MEDSUR 09-16 00:15
PROVIDERS: Physician Assistant; Admitting Provider Internal Medicine; Emergency Provider Emergency Medicine; PCP Family Medicine; Visit Provider Physician Assistant
DX: A41.9 Sepsis, unspecified organism (principal); L89.323 Pressure ulcer of left buttock, stage 3; L89.313 Pressure ulcer of right buttock, stage 3; J69.0 Pneumonitis due to inhalation of food and vomit; J18.9 Pneumonia, unspecified organism; E43 Unspecified severe protein-calorie malnutrition; E87.0 Hyperosmolality and hypernatremia; F02.81 Dementia in other diseases classified elsewhere, unspecified severity, with behavioral disturbance; Z68.1 Body mass index [BMI] 19.9 or less, adult; E87.1 Hypo-osmolality and hyponatremia; L89.892 Pressure ulcer of other site, stage 2; L89.629 Pressure ulcer of left heel, unspecified stage; L89.619 Pressure ulcer of right heel, unspecified stage; I25.10 Atherosclerotic heart disease of native coronary artery without angina pectoris; I10 Essential (primary) hypertension; E78.5 Hyperlipidemia, unspecified; L89.90 Pressure ulcer of unspecified site, unspecified stage; G30.0 Alzheimer's disease with early onset; E86.0 Dehydration; Z66 Do not resuscitate; Z79.82 Long term (current) use of aspirin; Z95.5 Presence of coronary angioplasty implant and graft
CPT/HCPCS: 36415; 70450; 71250; 72125; 74176; 80048; 80053; 80164; 81001; 83605; 85025; 87040; 92523; 92610; 96365; 99285; A9270; J0131; J0295; J0456; J1650; J7030